=== PATIENT | female | born 1965 | race Caucasian/White ===

== ENCOUNTER → 2024-02-03 07:15 | Outpatient (REF) | payer BC, SELFPAY | LOC: HWRAD 07:15 | PROVIDERS: ATTENDING PHYSICIAN Nurse Practitioner Family | DX: R19.00 Intra-abdominal and pelvic swelling, mass and lump, unspecified site (principal) | CPT/HCPCS: 76705 ==

== ENCOUNTER → 2024-03-15 11:35 | Outpatient (REF) | payer BC, SELFPAY | LOC: HWWDC 11:35 | PROVIDERS: ATTENDING PHYSICIAN Obstetrics & Gynecology; FAMILY PHYSICIAN Family Medicine | DX: Z12.31 Encounter for screening mammogram for malignant neoplasm of breast (principal) | CPT/HCPCS: 77063; 77067 ==

== ENCOUNTER → 2024-08-24 10:10 | Outpatient (REF) | payer BC, SELFPAY | LOC: RAD 10:10 | PROVIDERS: ATTENDING PHYSICIAN Physician Assistant Surgical; FAMILY PHYSICIAN Family Medicine | DX: M65.251 Calcific tendinitis, right thigh (principal); M76.02 Gluteal tendinitis, left hip; M76.01 Gluteal tendinitis, right hip; M25.552 Pain in left hip; M25.551 Pain in right hip | CPT/HCPCS: 76881 ==

== ENCOUNTER → 2024-08-25 12:37 | Outpatient (REF) | payer BC, SELFPAY ==
[2024-08-25 13:07] VITALS: BP 112/71; BP_SYST 82
== END ==
LOC: RADI 12:37
PROVIDERS: ATTENDING PHYSICIAN Physician Assistant Surgical; FAMILY PHYSICIAN Family Medicine
DX: M76.02 Gluteal tendinitis, left hip (principal); M76.01 Gluteal tendinitis, right hip; M65.251 Calcific tendinitis, right thigh; M25.552 Pain in left hip; M25.551 Pain in right hip
CPT/HCPCS: 20611

== ENCOUNTER → 2025-04-06 19:25 | Outpatient (REF) | payer BC, SELFPAY | LOC: WDC 19:25 | PROVIDERS: ATTENDING PHYSICIAN Obstetrics & Gynecology; FAMILY PHYSICIAN Family Medicine | DX: Z12.31 Encounter for screening mammogram for malignant neoplasm of breast (principal) | CPT/HCPCS: 77063; 77067 ==

== ENCOUNTER 2025-05-03 06:13 | Day surgery (SDC) | payer BC, SELFPAY ==
--- NOTE | 2025-05-01 11:50 | PTCARENOTE ---
Patients last dose of Ozempic 2mg- Thursday-04/30. Dr. Schneider notified-patient to have clear liqs day before surgery and nothing to eat or drink after midnight. Patient as well as Dr. Mckenna office notified, patient repeated directions back with
good understanding of instructions.
[2025-05-03] VITALS (10 sets, daily range): BP systolic 98–139; BP diastolic 64–83; BMI 25.3
[2025-05-03] MEDS: NORMOSOL-R/PLASMALYTE-A 1000 IV (09:38)
[2025-05-03] MEDS: TYLENOL 1000 MG PO (09:38)
[2025-05-03] MEDS: EMEND 40 MG PO (09:39)
[2025-05-03 09:41] LABS: Glucose - Point of Care 103 mg/dl (70-99)
[2025-05-03] MEDS: ZOFRAN 4 MG IV (11:06)
[2025-05-03] MEDS: COMPAZINE 5 MG IV (11:18)
== END 2025-05-03 13:00 | disposition home or self-care (01) ==
LOC: SDS 06:13
PROVIDERS: ATTENDING PHYSICIAN Otolaryngology
DX: J34.3 Hypertrophy of nasal turbinates (principal); J34.2 Deviated nasal septum
CPT/HCPCS: 30140; 82962

== ENCOUNTER 2025-07-01 16:14 | Emergency (ER) | payer BC, SELFPAY ==
[2025-07-01 16:20] VITALS: BP 147/70
[2025-07-01 16:36] VITALS: BP 112/69
[2025-07-01 16:46] VITALS: BMI 25.3
[2025-07-01 17:00] VITALS: BP 113/79
[2025-07-01 17:06] LABS: Hematocrit 29.6 % (37.0-47.0); Hemoglobin 9.7 g/dL (12.0-16.0); Mean Corp Hgb Conc. 32.8 g/dL (33.0-37.0); Mean Corpuscular Volume 82.0 fL (81.0-99.0); Nucleated Red Blood Cells % 0 %; Platelet Count 346 10^3/uL (130-400); Red Cell Dist. Width 13.9 % (11.5-14.5)
[2025-07-01 17:20] LABS: ALT (SGPT) 60 U/L (0-35); AST (SGOT) 42 U/L (14-36); Albumin 4.2 g/dl (3.5-5.0); Alkaline Phosphatase 64 U/L (38-126); Blood Urea Nitrogen 16 mg/dl (7-17); Calcium 9.2 mg/dl (8.4-10.2); Carbon Dioxide 28 mmol/L (22-30); Chloride 98 mmol/L (98-107); Estimated Creatinine Clearance 81 ml/min; Glucose 88 mg/dl (70-99); Potassium 4.1 mmol/L (3.5-5.1); Sodium 130 mmol/L (135-145); Total Protein 6.8 g/dl (6.3-8.2); eGFR > 60.00
[2025-07-01 17:32] LABS: Troponin I 0.015 ng/ml
[2025-07-01 18:00] VITALS: BP 116/75
[2025-07-01 18:43] LABS: D-Dimer < 0.27 ug/mlFEU (0.00-0.50)
[2025-07-01 19:00] VITALS: BP 113/74
[2025-07-01] MEDS: TORADOL 15 MG IV (19:50)
[2025-07-01 20:36] LABS: Troponin I < 0.012 ng/ml
--- NOTE | 2025-07-01 21:08 | ED.GENMED ---
History of Present Illness
General
Chief Complaint: Cardiac Symptoms
Source: patient and spouse
Time Seen by Provider: 07/01/25 17:07
History of Present Illness
History of Present Illness:
Note:
CHIEF COMPLAINT(S)
Chest discomfort
HISTORY OF PRESENT ILLNESS
The patient is a 59-year-old female with a history of myocardial infarction two years ago, presenting with chest discomfort. The symptoms began this morning upon waking, following physical exertion while helping her mother move the previous day. The
discomfort persisted throughout the day, increased at her sons concert, leading to dizziness and a sensation similar to hot flashes. The patient noted the chest pain was a little bit reminiscent of her prior heart attack, thus she administered
nitroglycerin with partial relief. Despite this, the discomfort has been constant with fluctuations in intensity but not fully resolving. The timeline and persistence of symptoms warranted enzyme testing to ensure no ongoing cardiac damage was
occurring. 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
The patient also described localized chest pain observed a few days prior, raising concerns about a possible pulmonary embolism. However, she has no recent travel history or other significant risk factors for venous thromboembolism, aside from a
deviated septum surgery nearly two months prior.
PAST MEDICAL AND SURGICAL HISTORY
- Myocardial infarction two years ago
- Deviated septum surgery nearly two months ago
CHRONIC MEDICAL CONDITIONS SIGNIFICANTLY AFFECTING CARE
- Hypertension
- Hyperlipidemia
- Diabetes mellitus (previously prediabetes, recently elevated HbA1c levels being managed)
MEDICATIONS
- Nitroglycerin (self-administered for chest discomfort)
- Ozempic for elevated HbA1c/pre-diabetes
- Previous use of Metformin (no longer in use as indicated by patients account)
REVIEW OF SYSTEMS
- Cardiovascular: Chest discomfort, dizziness
- Neurological: Sensations of dizziness
- General: Describes a sensation of hot flashes
PHYSICAL EXAM
General: Alert, no acute distress.
Skin: Warm, dry.
Head: Normocephalic, atraumatic.
Neck: Supple, trachea midline.
Eye, Ears, Nose, Mouth, and Throat: Oral mucosa moist.
Cardiovascular: Heart regular in rhythm without murmurs, pulses palpable, and no edema noted.
Respiratory: Breath sounds clear bilaterally without adventitious sounds.
Gastrointestinal: Abdomen nondistended.
Back: Normal range of motion, Normal alignment.
Musculoskeletal: Normal range of motion, normal strength.
Neurological: Alert and oriented to person, place, time, and situation, No focal neurological deficit observed.
Psychiatric: Cooperative, appropriate mood & affect.
PROBLEM LIST
Acute:
- Chest discomfort
Chronic:
- Hypertension
- Hyperlipidemia
- Diabetes mellitus (managed with Ozempic)
PLAN
- Conduct cardiac enzyme testing to evaluate for myocardial infarction.
- Perform an ultrasound of the lower extremities to evaluate for potential deep vein thrombosis.
- Conduct a D-dimer test to evaluate for pulmonary embolism though clinical suspicion is low.
- Communicate with patients track production engineer, Dr. Perez Barone, once results of the cardiac enzymes are obtained.
DIFFERENTIAL DIAGNOSIS
The Differential Diagnosis includes, in no particular order and is not limited to:
1. Acute coronary syndrome
2. Musculoskeletal chest pain
3. Gastroesophageal reflux disease
4. Pulmonary embolism
5. Anxiety or stress-induced chest pain
6. Pericarditis
7. Aortic dissection
8. Pneumothorax
9. Hypertensive crisis
10. Atrial fibrillation with rapid ventricular response
Disposition:
SUMMARY OF ENCOUNTER
The 59-year-old female patient presented to the emergency department with chest discomfort reminiscent of her prior myocardial infarction. Evaluation included lab testing and imaging to rule out acute cardiac events. Troponin was negative, EKG
showed no changes, chest x-ray was normal, and other lab work including CBC and CMP were normal. The patient received intravenous NSAID therapy (ketorolac) for symptom relief and reported feeling better after administration.
DISPOSITION
Discharge
ASSESSMENT
The patients chest discomfort likely represents musculoskeletal or non-cardiac origin as her troponins were negative, and no acute cardiac or pulmonary issues were identified.
MANAGEMENT OF THE PATIENTS CARE WAS DISCUSSED WITH
Consultation with Dr. Perez Barone, the patients track production engineer, was conducted and it was agreed that outpatient follow-up is appropriate given the negative evaluation for acute cardiac events.
PLAN
The patient will follow up with her track production engineer over the weekend for further cardiac evaluation, including possible stress testing.
INDEPENDENT REVIEW OF LABS AND INTERPRETATION OF TESTS
- My independent review of troponin is negative.
- My independent review of CBC is normal.
- My independent review of CMP is normal.
- My independent chest x-ray interpretation is normal.
MEDICATION RECONCILIATION
Ketorolac was administered intravenously in the emergency department for chest pain relief.
MEDICAL DECISION MAKING
- Number and Complexity of Problems Addressed: Chronic conditions affecting care include myocardial infarction, hypertension, hyperlipidemia, and diabetes mellitus. The differential diagnosis considers acute coronary syndrome, musculoskeletal chest
pain, and anxiety among others.
- Data:
- Category 1: Tests conducted include EKG, troponin, CBC, CMP, and chest x-ray.
- Category 3: Management discussion occurred with the patients track production engineer, agreeing on outpatient follow-up.
- Risk: Consideration of Admission/Observation: Escalation of care was considered due to the persistent chest pain, but was ultimately deemed unnecessary due to negative work-up results and stability of the patient�s condition upon reassessment. The
patient was agreeable to discharge with reliable follow-up arranged.
DIAGNOSIS
1. Chest pain, unspecified (ICD-10: R07.9)
2. Hypertension (ICD-10: I10)
3. Hyperlipidemia (ICD-10: E78.5)
4. CAD
Past History
Past History
ED Past Medical History: Other (thyroid goiters, Uterine Fibroids, Ovarian cysts, diverticulitis)
ED Past Surgical History:
Social History
Tobacco: Non-smoker
Drug: None
Personal:
Living: with family
Employment: Employed
Family History
Family History: Other
Phy Exam
Physical Exam
Physical Exam:
.
Course
Orders/Labs/Results
Orders:
Orders
07/01/25 16:15
ECG [Electrocardiogram (*1)] Urgent
Reason for Study: Chest Pain
07/01/25 16:16
EKG- Treatment ONCE
07/01/25 16:54
Complete Blood Count/With Diff Urgent
Comprehensive Metabolic Panel Urgent
Troponin I Urgent
07/01/25 17:46
D-Dimer Urgent
07/01/25 18:55
EKG- Treatment ONCE
07/01/25 19:21
CR Chest - 2 Views Urgent
Comment:
Reason For Exam: cp
07/01/25 19:27
Ketorolac [Toradol] 15 mg IV NOW STA
07/01/25 19:50
Troponin I Urgent
07/01/25 20:00
Electrocardiogram (*1) Urgent
Reason for Study: Chest Pain
Abnormal Lab Results
07/01/25
16:54
RBC 3.61 L 10^6/uL
(4.20-5.40)
Hgb 9.7 L g/dL
(12.0-16.0)
Hct 29.6 L %
(37.0-47.0)
MCH 26.9 L pg
(27.0-31.0)
MCHC 32.8 L g/dL
(33.0-37.0)
Absolute Monos (auto) 0.8 H 10^3/uL
(0.1-0.6)
Monocytes % 10.9 H %
(1.7-9.3)
Sodium 130 L mmol/L
(135-145)
AST 42 H U/L
(14-36)
ALT 60 H U/L
(0-35)
07/01/25 16:54
07/01/25 16:54
Vital Signs
Initial and Last Documented VS:
Initial Vital Signs
Temp Pulse Resp BP Pulse Ox
98.0 F 70 20 147/70 99
07/01/25 16:20 07/01/25 16:20 07/01/25 16:20 07/01/25 16:20 07/01/25 16:20
Last Documented Vital Signs
Temp Pulse Resp BP Pulse Ox
98.0 F 74 18 113/74 97
07/01/25 16:20 07/01/25 21:01 07/01/25 21:01 07/01/25 19:00 07/01/25 20:30
*Pulse Oximetry
SaO2: 97
Oxygen Mode of Delivery: Room air
Patient hypoxic: no
*Critical Care Note
Total Time (30-74mins, 75-104mins- exclusive of procedures): Not Applicable
ED Attending Note
-
Portions of this chart may have been created with voice recognition software.� Occasional wrong word or��sound alike� substitutions may have occurred due to the inherent limitations of voice recognition software.
Discharge Plan
Departure
Patient Disposition: Home (Routine Discharge)
Date of Disposition: 07/01/25
Time of Disposition: 21:09
Patient with high blood pressure during this ER visit?: No
Discharge Problem:
Chest pain
Instructions: Chest Pain NON-DHP Cuff Cutter Follow Up
Prescriptions:
No Action
losartan 25 mg Tablet
12.5 mg PO HS
aspirin 81 mg Tablet,Chewable
81 mg PO DAILY
metformin 500 mg Tablet Extended Release 24 Hr
1,000 mg PO QPM
atorvastatin 20 mg Tablet
20 mg PO DAILY
pantoprazole [Protonix] 20 mg Tablet,Delayed Release (Dr/Ec)
20 mg PO BID
nitroglycerin 0.4 mg Tablet, Sublingual
0.4 mg SUBLINGUAL Q5M PRN (Reason: chest pain)
metoprolol succinate 25 mg Tablet Extended Release 24 Hr
25 mg PO DAILY
levothyroxine [Synthroid] 112 mcg tablet
112 mcg PO DAILY
Ozempic 2 mg/dose (8 mg/3 mL) Pen Injector
2 mg SC DALEY
Culturelle
1 cap PO DAILY
estradiol 0.01 % (0.1 mg/gram) Cream
1 appful VAGINAL MOWE
multivitamin Tablet
1 tab PO DAILY
Referrals:
Jean Paul Boogie MD [Family Provider, Family Practice]
Activity Restrictions/Additional Instructions:
Please avoid strenuous or exertional activity until cleared by cardiology. Please see cardiology in the next 48 hours for reevaluation. Return immediately for worsening pain, shortness breath, palpitations, sweating, nausea, weakness of any kind,
numbness, tingling or any other concerns.
As discussed, your track production engineer will follow-up with you in the next 24 to 48 hours
Interventions
Interventions:
*Risk Screen - Suicide Last Done: 07/01/25 16:46
*General Assessment Last Done: 07/01/25 16:20
*Neglect/Abuse Screening Last Done: 07/01/25 16:46
*ED COVID-19 Vaccine History Last Done: 07/01/25 19:30
*ED Influenza Vaccine History Last Done: 07/01/25 16:46
[facility] Fall Risk Assessment Tool Last Done: 07/01/25 18:44
ED- Pulmonary Assessment Last Done: 07/01/25 17:07
ED- Cardiac Assessment Last Done: 07/01/25 17:07
Discharge Date and Time
Print Language: [id number]
[2025-07-01 21:09] VITALS: BP 114/76
== END 2025-07-01 21:18 | disposition home or self-care (01) ==
LOC: EMR 16:14
PROVIDERS: Emergency Medicine; EMERGENCY PHYSICIAN Emergency Medicine; FAMILY PHYSICIAN Family Medicine
DX: R07.89 Other chest pain (principal); E78.5 Hyperlipidemia, unspecified; I10 Essential (primary) hypertension; E11.9 Type 2 diabetes mellitus without complications; I25.2 Old myocardial infarction
CPT/HCPCS: 99285; 96374; 71046; 80053; 84484; 85025; 85379; 93005